=== PATIENT | male | born 1940 | race Caucasian/White ===

== ENCOUNTER → 2018-05-17 | Outpatient (CLI) | payer MEDICARE, BC ==
[2018-05-17 12:07] LABS: INR 2.1 (<1.2); Partial Thromboplastin Time 45.2 sec (22.0-30.0); Prothrombin Time 19.4 sec (9.0-12.0)
== END | disposition home or self-care (01) ==
LOC: LABWHC1 10:39
PROVIDERS: ATTEND Dentist Oral and Maxillofacial Surgery
DX: D68.9 Coagulation defect, unspecified (principal)
CPT/HCPCS: 36415; 85610; 85730